=== PATIENT | female | born 1965 | race Two or more races ===

== ENCOUNTER 2018-12-12 19:22 | Emergency (ER) | payer OTHER ==
[~2018-12-12] VITALS: Ht 149.9 cm; Wt 66.7 kg
--- NOTE | 2018-12-12 19:26 | NUR ---
ER Nurse Note: Not in waiting room. Will call again.
[2018-12-12 19:30] VITALS: BP 162/84
--- NOTE | 2018-12-12 19:30 | NUR ---
ED Nurse Note: Walk-in patient with complaints of fall around 1500 today, no head trauma and reports pain 5/10 to the right arm and leg.
[2018-12-12] MEDS ORDERED: Ketorolac 30mg Inj IM ONE (20:30)
--- NOTE | 2018-12-12 20:30 | Emergency Room Report ---
History of Present Illness General Chief Complaint: Pain Source: Patient Present Illness HPI 53-year-old female presents to the emergency department complaining of 5 out of 10 severity pain to the right shoulder as well as the right knee in addition to right knee swelling and abrasion status post mechanical trip and fall earlier this evening. Patient denies hitting her head she denies having a loss of consciousness and she denies any midline neck or back pain. Denies previous injury to the affected extremities. Pt. is able to bear weight. Denies numbness tingling or loss of sensation or gross motor movements of the extremities, incontinence of bowel or bladder. Denies CP, Palpitations, LOC, AMS, dizziness, Changes in Vision, weakness or a sudden severe headache. She is UTD with tetanus. Allergies: Coded Allergies: No Known Allergies (Unverified , 12/12/18) Patient History Past Medical History: see triage record Past Surgical History: none Pertinent Family History: none Last Menstrual Period: na Now: No Immunizations: UTD Reviewed Nursing Documentation: PMH: Agreed; PSxH: Agreed Nursing Documentation-PMH Past Medical History: No Stated History Review of Systems All Other Systems: negative except mentioned in HPI Physical Exam Vital Signs Date Time Temp Pulse Resp B/P (MAP) Pulse Ox O2 Delivery O2 Flow Rate FiO2 12/12/18 19:27 97.9 4 18 162/84 (110) 96 Sp02 EP Interpretation: reviewed, normal General Appearance: no apparent distress, alert, GCS 15, non-toxic Head: normocephalic, atraumatic Eyes: bilateral eye normal inspection, bilateral eye PERRL ENT: hearing grossly normal, normal voice Neck: full range of motion Respiratory: lungs clear, normal breath sounds, speaking full sentences Cardiovascular #1: regular rate, rhythm, normal capillary refill Cardiovascular #2: 2+ radial (R), 2+ radial (L), 2+ dorsalis pedis (R), 2+ dorsalis pedis (L) Musculoskeletal: back normal, gait/station normal - mild compensation favoring the right leg, normal range of motion, tender - TTP to the right shoulder posteriorly and the right trapezius muscle, No obvious step off. pt. has too much pain to perform lift off testing. TTP to the right knee. No increased in laxity, negative ant./post. drawers signs. mild swelling laterally. no obvious deformities. Neurologic: alert, oriented x3, responsive, motor strength/tone normal, sensory intact, speech normal, grossly normal Psychiatric: judgement/insight normal Skin: abrasion - ant. right knee, superficial not bleeding. Medical Decision Making MAYCO Blake is my supervising Physician whom patient management has been discussed with. Diagnostic Impression: Primary Impression: Shoulder pain, right Qualified Codes: M25.511 - Pain in right shoulder Additional Impressions: Knee pain, acute Qualified Codes: M25.561 - Pain in right knee Multiple contusions Abrasion of knee, right Qualified Codes: S80.211A - Abrasion, right knee, initial encounter ER Course 53-year-old female presents to the emergency department complaining of 5 out of 10 severity pain to the right shoulder as well as the right knee in addition to right knee swelling and abrasion status post mechanical trip and fall earlier this evening. Patient denies hitting her head she denies having a loss of consciousness and she denies any midline neck or back pain. Denies previous injury to the affected extremities. Pt. is able to bear weight. Denies numbness tingling or loss of sensation or gross motor movements of the extremities, incontinence of bowel or bladder. Denies CP, Palpitations, LOC, AMS, dizziness, Changes in Vision, weakness or a sudden severe headache. She is UTD with tetanus. Ddx considered but are not limited to Fracture, dislocation, contusion, Sprain/ Strain/Spasm, labral tear, rotator cuff injury, or meniscal injury just to name a few Vital signs: are WNL, pt. is afebrile H&PE are most consistent with musculoskeletal injury will perform imaging to r/ o fractures/dislocations. ORDERS: - X-ray's: right shoulder 3 views and right knee 3 views - negative for fx, Dislocation, or significant soft tissue injury, per preliminary read in ED, and signed by MAYCO Higuera, my supervising physician has reviewed, and agrees with my interpretation. ED INTERVENTIONS: - Toradol IM -Neosporin - Right arm Sling applied by administrative technician. Pt. remains neurovascularly intact. DISCHARGE: At this time pt. is stable for d/c to home. Will provide printed patient care instructions, and any necessary prescriptions. Care plan and follow up instructions have been discussed with the patient prior to discharge. Other X-Ray Diagnostic Results Other X-Ray Diagnostic Results #1: X-Ray ordered: Right Shoulder # of Views/Limited Vs Complete: 3 View Indication: Pain EP Interpretation: Yes MAYCO Xray: Interpretation reviewed, by supervising MD, and agrees with findings. Interpretation: no dislocation, no soft tissue swelling, no fractures Impression: No acute disease Electronically Signed by: Nila Higuera PA-C Other X-Ray Diagnostic Results #2: X-Ray ordered: Right Knee # of Views/Limited Vs Complete: 3 View Indication: Pain EP Interpretation: Yes MAYCO Xray: Interpretation reviewed, by supervising MD, and agrees with findings. Interpretation: no dislocation, no soft tissue swelling, no fractures Impression: No acute disease Electronically Signed by: Nila Higuera PA-C Last Vital Signs Date Time Temp Pulse Resp B/P (MAP) Pulse Ox O2 Delivery O2 Flow Rate FiO2 12/12/18 19:30 97.9 82 18 162/84 96 Status: improved Disposition: HOME, SELF-CARE Condition: Stable Scripts Bacitracin/Polymyxin B Sulfate (BACITRACIN-POLYMYXIN OINTMENT) 28.35 Gm Oint...g. 1 APPLIC TP BID, #28.3 GM Prov: Nila Higuera 12/12/18 Ibuprofen* (MOTRIN*) 600 Mg Tablet 600 MG ORAL THREE TIMES A DAY, #30 TAB 0 Refills Prov: Nila Higuera 12/12/18 Patient Instructions: Knee Sprain, [id number], Shoulder Sprain Additional Instructions: Take medications as directed. Follow up with a Primary Care Provider in 3-5 days, even if your symptoms have resolved. Return sooner to ED if new symptoms occur, or current symptoms become worse. Do not drink alcohol, drive, or operate heavy machinery while taking Robaxin ( Muscle relaxer) as this may cause drowsiness. - Please note that this Emergency Department Report was dictated using [employer] technology software, occasionally this can lead to erroneous entry secondary to interpretation by the dictation equipment. Nila Higuear Dec 12, 2018 20:30
[2018-12-12] MEDS ORDERED: BACITRACIN-P28.35 GM TP (21:03)
[2018-12-12] MEDS ORDERED: IBUPROFEN600 MG ORAL (21:03)
[2018-12-12] MEDS ORDERED: ROBAXIN-750750 MG PO (21:19)
[2018-12-12 21:22] VITALS: BP 162/84
--- NOTE | 2018-12-12 21:22 | NUR ---
ED Nurse Note: Patient cleared for discharge, no s/s of acute distress. Patient ID band removed, Patient departed with all belongings after verbalizing understanding of discharge instructions.
--- NOTE | 2018-12-13 14:17 | Diagnostic Imaging Report ---
Indication: Right knee pain Technique: 3 views of the right knee Comparison: None Findings: No acute fractures. No dislocations. No suprapatellar effusion. The joint spaces are preserved Impression: Negative
--- NOTE | 2018-12-13 14:19 | Diagnostic Imaging Report ---
Indication: Right shoulder pain Technique: 3 views of the right shoulder Comparison: none Findings: No acute fractures. No dislocations. Calcific density projected in or over the humeral head reflect a small bone island or a focus of calcific tendinosis Impression: Negative
== END 2018-12-12 21:22 | disposition home or self-care (01) ==
LOC: EMR 20:13
DX: S80.211A Abrasion, right knee, initial encounter (principal); M25.511 Pain in right shoulder; M25.561 Pain in right knee; W01.0XXA Fall on same level from slipping, tripping and stumbling without subsequent striking against object, initial encounter; Y92.9 Unspecified place or not applicable
CPT/HCPCS: 73030; 73562; 96372; 99284; J1885